=== PATIENT | female | born 1995 | race African-American/Black ===

== ENCOUNTER 2016-12-13 11:26 | Emergency (ER) | payer SELFPAY ==
[~2016-12-13] VITALS: Ht 160 cm; Wt 54.4 kg
[~2016-12-13 11:26] MED LIST: TYLENOL; [UNRECOGNIZED DRUG - REMARK]
[2016-12-13 12:03] VITALS: BP 108/67
--- NOTE | 2016-12-13 13:57 | NUR ---
PT AMBULATED TO BED 3 AT THIS TIME.
--- NOTE | 2016-12-13 14:03 | NUR ---
PATIENT PRESENTS TO ED WITH C/O DYSURIA, PT VERBALIZED BURNING UPON VOIDING X1 WK.NO PAIN NOTED AT THIS TIME. DENIES N/V/D; SKIN IS PINK/WARM/DRY; AAOX4 WITH EVEN AND STEADY GAIT; LUNGS CLEAR BL; HR EVEN AND REGULAR; PT DENIES ANY FEVER, CP, SOB, OR COUGH AT THIS TIME; PATIENT POSITIONED FOR COMFORT; HOB ELEVATED; BEDRAILS UP X2; BED DOWN. ER MD MADE AWARE OF PT STATUS.
--- NOTE | 2016-12-13 14:27 | NUR ---
PT IS AAOX4. NO ACUTE DISTRESS NOTED.NEEDS ATTENDED,SAFETY PRECAUTION INSTITUTED.WILL CONTINUE TO MONITOR PT.
[2016-12-13 14:53] VITALS: BP 121/86
--- NOTE | 2016-12-13 14:53 | NUR ---
Patient discharged with v/s stable. Written and verbal after care instructions given and explained. Patient alert, oriented and verbalized understanding of instructions. Ambulatory with steady gait. All questions addressed prior to discharge. ID band removed. Patient advised to follow up with PMD. Rx of CIPRO, PYRIDIUM,MOTRIN given. Patient educated on indication of medication including possible reaction and side effects. Opportunity to ask questions provided and answered.
== END 2016-12-13 14:53 | disposition home or self-care (01) ==
LOC: MED 11:26
DX: N39.0 Urinary tract infection, site not specified (principal); Z32.02 Encounter for pregnancy test, result negative

== ENCOUNTER 2018-07-23 14:34 | Emergency (ER) | payer MEDICARE ==
[~2018-07-23] VITALS: Ht 162.6 cm; Wt 59.0 kg
[2018-07-23 14:41] VITALS: BP 122/71
--- NOTE | 2018-07-23 14:50 | NUR ---
22YO F W/C/O VAGINAL DC AND PAIN X 2 WK. THIN WHITE DISCHARGE. PRURITUS AND BURNING PAIN, NO OTHER MEDICAL CO AT THIS TIME. ER MD MADE AWARE, WILL CONTINUE TO MONITOR. --[facility] RX FLAGYL X7DAYS COURSE DC AND DISCOMFORT PERSIST HX--DENIES RX---NONE
--- NOTE | 2018-07-23 14:56 | NUR ---
DR COLEMAN AT BEDSIDE FOR PATIENT EVALUATION
[2018-07-23] MEDS ORDERED: AZITHROMYCIN 250 MG TAB PO ONE (15:10)
[2018-07-23] MEDS ORDERED: cefTRIAXone 250 MG in LIDOCAINE MPF 1% - 5 mL VIAL 0.9 ML IM ONE (15:10)
[2018-07-23 15:19] LABS: APPEARANCE,URINE CLEAR (CLEAR); BILIRUBIN,URINE NEGATIVE (NEGATIVE); BLOOD, URINE NEGATIVE (NEGATIVE); COLOR,URINE YELLOW (YELLOW); LEUKOCYTE ESTERASE ,URINE TRACE (NEGATIVE); NITRITE, URINE NEGATIVE (NEGATIVE); PH,URINE 6.5 (5.0-9.0); UGLUCOSE NEGATIVE (NEGATIVE)
--- NOTE | 2018-07-23 15:20 | NUR ---
PT RESTING IN BED IN NO APPEARENT DISTRESS WILL CONTINUE TO MONITOR
[2018-07-23 15:30] LABS: RBC,URINE 0-5 (RARE) /HPF (0-5); WBC,URINE 0-5 (RARE) /HPF (0-5)
[2018-07-23 16:42] VITALS: BP 125/72
--- NOTE | 2018-07-23 16:42 | NUR ---
Patient discharged with v/s stable. Written and verbal after care instructions given and explained. Patient alert, oriented and verbalized understanding of instructions. Ambulatory with steady gait. All questions addressed prior to discharge. ID band removed. Patient advised to follow up with PMD. Rx of DIFLUCAN, CIPRO given. Patient educated on indication of medication including possible reaction and side effects. Opportunity to ask questions provided and answered.
[2018-07-25 06:27] LABS: CHLAMYDIA TRACHOMATIS AMP DNA Negative (Negative)
== END 2018-07-23 16:42 | disposition home or self-care (01) ==
LOC: MED 14:34
DX: N39.0 Urinary tract infection, site not specified (principal)
CPT/HCPCS: 36415; 81001; 81025; 87086; 87491; 96372; 99284; J0696; J2001

== ENCOUNTER 2019-02-11 01:11 | Emergency (ER) | payer BC, MEDICARE, OTHER ==
[~2019-02-11] VITALS: Ht 162.6 cm; Wt 65.8 kg
--- NOTE | 2019-02-11 01:20 | NUR ---
pt ambulated to bed 11
--- NOTE | 2019-02-11 01:20 | NUR ---
Desirae singer in [facility] - 02/11/19 at 0120 by DIOGENES PT TAKEN TO BED 11
[2019-02-11 01:21] VITALS: BP 115/79
--- NOTE | 2019-02-11 01:25 | NUR ---
PT CAME IN TO THE ER WITH C/O RT EAR PAIN. PATIENT STATED THAT SHE HAD A COLD THIS PAST WEEK. ASSESSED THE EAR PT HAD SOME REDNESS, PT ABLE TO HEAR. PAIN 7/10 ACHE, PAIN STARTED 2 DAYS AGO. ER MD AT BEDSIDE.SAFETY PRECAUTIONS IN PLACE.
[2019-02-11] MEDS ORDERED: IBUPROFEN 800 MG TAB PO ONE (01:30)
[2019-02-11] MEDS ORDERED: AMOXICILLIN 500 MG CAP PO ONE (01:30)
[2019-02-11 02:03] VITALS: BP 130/76
--- NOTE | 2019-02-11 02:03 | NUR ---
Patient discharged with v/s stable. Written and verbal after care instructions given and explained. Patient alert, oriented and verbalized understanding of instructions. Ambulatory with steady gait. All questions addressed prior to discharge. ID band removed. Patient advised to follow up with PMD. Rx of Amoxicillin and Motrin given. Patient educated on indication of medication including possible reaction and side effects. Opportunity to ask questions provided and answered.
== END 2019-02-11 02:03 | disposition home or self-care (01) ==
LOC: MED 01:11
DX: H66.93 Otitis media, unspecified, bilateral (principal); Z79.899 Other long term (current) drug therapy
CPT/HCPCS: 99283

== ENCOUNTER 2019-05-14 18:12 | Emergency (ER) | payer BC, OTHER ==
[~2019-05-14] VITALS: Ht 162.6 cm; Wt 75.4 kg
[2019-05-14 18:16] VITALS: BP 132/71
--- NOTE | 2019-05-14 18:21 | NUR ---
PT AMBULATED TO LOBBY AT THIS TIME W/ VSS.
--- NOTE | 2019-05-14 18:30 | NUR ---
PT TO ER BED 6
--- NOTE | 2019-05-14 18:40 | NUR ---
PT BIB SELF TO THE ED WITH THE CHIEF C/O COUGH, THROAT PAIN AND NASAL CONGESTION FOR 3 WEEKS. COUGH WITH PHLEGM AND BLOOD. NAUSEATED AT THIS TIME. DENIES FEVER. REPORTS OF HAVING VOMIT X3 TODAY AFTER COUGH. LUNGS CLEAR. STATES GENERALIZED PAIN 10/10 AT THIS TIME.
[2019-05-14 19:10] VITALS: BP 132/71
--- NOTE | 2019-05-14 19:10 | NUR ---
Patient discharged with v/s stable. Written and verbal after care instructions given and explained. Patient alert, oriented and verbalized understanding of instructions. Ambulatory with steady gait. All questions addressed prior to discharge. ID band removed. Patient advised to follow up with PMD. Rx of tessalon pearls/ azithromycin/claritin given. Patient educated on indication of medication including possible reaction and side effects. Opportunity to ask questions provided and answered.
== END 2019-05-14 19:00 | disposition home or self-care (01) ==
LOC: MED 18:12
DX: R05 Cough (principal); R07.0 Pain in throat; R11.10 Vomiting, unspecified; R07.9 Chest pain, unspecified; M79.10 Myalgia, unspecified site; R51 Headache; Z79.899 Other long term (current) drug therapy
CPT/HCPCS: 99283

== ENCOUNTER 2019-07-07 14:50 | Emergency (ER) | payer BC, OTHER ==
[~2019-07-07] VITALS: Ht 160 cm; Wt 68.0 kg
[2019-07-07 15:00] VITALS: BP 116/74
--- NOTE | 2019-07-07 15:58 | NUR ---
PT AMBULATED TO BED 07.
--- NOTE | 2019-07-07 16:04 | NUR ---
23F PT BIB FRIEND C/O 10/10 THROAT PAIN/DISCOMFORT X 1 WEEK. NON RADIATING 10/10 SHARP PAIN IN THROAT THAT INCREASES W/ SWALLOWING. STATES FEELS LIKE THROAT IS CLOSING UP. AIRWAY PATENT, VOICE CLEAR, NO EXCESS DROOLING, RR EVEN AND NON-LABORED, BREATH SOUNDS CLEAR THROUGHOUT. TONSILS APPEAR SWOLLEN. DENIES FEVER, N/V/D. VSS. ER MD TO SEE PT. HX- NONE RX- CONTROL ALL- NKA
[2019-07-07] MEDS ORDERED: DEXAMETHASONE 10 MG/ML VIAL PO ONE (17:30)
--- NOTE | 2019-07-07 17:43 | NUR ---
STREP THROAT CULTURE COLLECTED AND WALKED TO LAB
[2019-07-07 18:49] VITALS: BP 101/71
--- NOTE | 2019-07-07 18:49 | NUR ---
Patient discharged with v/s stable. Written and verbal after care instructions given and explained. Patient verbalized understanding. Ambulatory with steady gait. All questions addressed prior to discharge. Advised to follow up with PMD.
== END 2019-07-07 18:50 | disposition home or self-care (01) ==
LOC: MED 14:50
DX: J02.8 Acute pharyngitis due to other specified organisms (principal); Z79.1 Long term (current) use of non-steroidal anti-inflammatories (NSAID)
CPT/HCPCS: 87081; 99283; J1100

== ENCOUNTER 2019-07-16 06:51 | Emergency (ER) | payer BC, OTHER ==
[~2019-07-16] VITALS: Ht 162.6 cm; Wt 63.5 kg
[2019-07-16 06:56] VITALS: BP 110/59
[2019-07-16 06:58] VITALS: BP 110/59
== END 2019-07-16 07:46 | disposition home or self-care (01) ==
LOC: MED 06:51
DX: J02.9 Acute pharyngitis, unspecified (principal); F12.90 Cannabis use, unspecified, uncomplicated; Z79.899 Other long term (current) drug therapy
CPT/HCPCS: 99283

== ENCOUNTER 2019-10-10 13:20 | Emergency (ER) | payer OTHER, BC ==
[~2019-10-10] VITALS: Ht 162.6 cm; Wt 82.3 kg
[2019-10-10 13:30] VITALS: BP 129/83
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
--- NOTE | 2019-10-10 14:15 | NUR ---
PA EVALUATING PT AT CHAIRSIDE
[2019-10-10 14:38] VITALS: BP 129/83
== END 2019-10-10 14:38 | disposition home or self-care (01) ==
LOC: MED 13:20
DX: S93.402A Sprain of unspecified ligament of left ankle, initial encounter (principal); S16.1XXA Strain of muscle, fascia and tendon at neck level, initial encounter; Z79.899 Other long term (current) drug therapy; V89.2XXA Person injured in unspecified motor-vehicle accident, traffic, initial encounter; Y93.89 Activity, other specified; Y92.89 Other specified places as the place of occurrence of the external cause; Y99.8 Other external cause status
CPT/HCPCS: 99282

== ENCOUNTER 2020-05-21 09:14 | Emergency (ER) | payer BC, OTHER ==
[~2020-05-21] VITALS: Ht 160 cm; Wt 72.6 kg
[2020-05-21 09:20] VITALS: BP 120/75
--- NOTE | 2020-05-21 09:30 | NUR ---
DR COLEMAN AT BEDSIDE
--- NOTE | 2020-05-21 09:31 | NUR ---
C/O SWOLLEN LEFT UPPER EYE LID SINCE THIS MORNING. EYELID IS VISIBLY SWOLLEN. DENIES ITCHINESS AND MILD PAIN 6/10. STATES MILD BLURRY VISION. NO TRAUMA REPORTED. NO PMH NKA
--- NOTE | 2020-05-21 09:40 | NUR ---
Patient discharged. Written and verbal after care instructions given and explained. Patient alert, oriented and verbalized understanding of instructions. Ambulatory with steady gait. All questions addressed prior to discharge. ID band removed. Patient advised to follow up with PMD. Rx of MOTRIN AND BLEPH OPTHALMIC SOLUTION given. Patient educated on indication of medication including possible reaction and side effects. Opportunity to ask questions provided and answered.
== END 2020-05-21 09:40 | disposition home or self-care (01) ==
LOC: MED 09:14
DX: H00.014 Hordeolum externum left upper eyelid (principal); Z79.899 Other long term (current) drug therapy
CPT/HCPCS: 99283

== ENCOUNTER 2020-09-25 08:15 | Emergency (ER) | payer BC, OTHER ==
[~2020-09-25] VITALS: Ht 165.1 cm; Wt 87.2 kg
[2020-09-25 08:24] VITALS: BP 120/70
--- NOTE | 2020-09-25 08:32 | NUR ---
PT TAKEN TO BED 10.
--- NOTE | 2020-09-25 08:45 | NUR ---
24 Y/O COMES FROM HOME PRESENTS TO ED C/O SORE THROAT X LAST NIGHT. COVID TESTED POSITIVE 5 MONTHS AGO & RE-CHECKED 3 WEEKS LATER : NEGATIVE. PT STES SHE HAS BEEN HAVING INCREASED PAIN WHEN EATING, SWALLOWING AND SPEAKING X1 DAY. RATES PAIN 7/10. PT STATES " IT FEELS LIKE STREP THROAT". BACK OF THROAT IS RED, WITH A SMALL WHITE PATCH ON THE RIGHT TONSILLAR AREA. DENIES TROUBLE SWALLOWING OR BREATHING. PT POSITIONED FOR COMFORT, BED LOCKED AND IN LOWEST POSITION. NO PMH NKDA
[2020-09-25] MEDS ORDERED: ACETAMINOPHEN 325 MG TAB PO ONE (09:35)
[2020-09-25] MEDS ORDERED: LIDOCAINE VISCOUS 2% 20 ML UDC PO ONE (09:35)
--- NOTE | 2020-09-25 09:46 | NUR ---
STEP SWAB COMPLETED AND SENT TO LAB
[2020-09-25 10:32] VITALS: BP 120/70
--- NOTE | 2020-09-25 10:32 | NUR ---
Patient discharged with v/s stable. Written and verbal after care instructions given and explained. Patient alert, oriented and verbalized understanding of instructions. Ambulatory with steady gait. All questions addressed prior to discharge. ID band removed. Patient advised to follow up with PMD. Rx of CHLOROHEXADINE GLUCONATE, CEPACOL given. Patient educated on indication of medication including possible reaction and side effects. Opportunity to ask questions provided and answered.
== END 2020-09-25 10:32 | disposition home or self-care (01) ==
LOC: MED 08:15
DX: J02.9 Acute pharyngitis, unspecified (principal)
CPT/HCPCS: 87081; 99283

== ENCOUNTER 2020-09-29 17:27 | Emergency (ER) | payer OTHER, BC ==
[~2020-09-29] VITALS: Ht 162.6 cm; Wt 86.2 kg
[2020-09-29 17:47] VITALS: BP 135/76
[2020-09-29] MEDS ORDERED: DEXAMETHASONE 10 MG/ML VIAL IM ONE (19:55)
[2020-09-29] MEDS ORDERED: KETOROLAC 30 MG/ML VIAL IM ONE (19:55)
[2020-09-29] MEDS ORDERED: cefTRIAXone 1,000 MG in LIDOCAINE MPF 1% 2.1 ML IM ONE (19:55)
--- NOTE | 2020-09-29 19:57 | NUR ---
PT TAKEN TO CHAIR A.
--- NOTE | 2020-09-29 20:00 | NUR ---
SEE COMPLETE ASSESSMENT
[2020-09-29] MEDS ORDERED: LIDOCAINE MPF 1% 5 ML ONE (20:02)
[2020-09-29] MEDS ORDERED: cefTRIAXone 1,000 MG VIAL ONE (20:02)
--- NOTE | 2020-09-29 20:42 | NUR ---
Patient discharged with v/s stable. Written and verbal after care instructions given and explained. Patient alert, oriented and verbalized understanding of instructions. Ambulatory with steady gait. All questions addressed prior to discharge. ID band removed. Patient advised to follow up with PMD. Rx of NORCO, IBUPROFEN, AND AMOXICILIN given. Patient educated on indication of medication including possible reaction and side effects. Opportunity to ask questions provided and answered.
== END 2020-09-29 20:42 | disposition home or self-care (01) ==
LOC: MED 17:27
DX: J02.9 Acute pharyngitis, unspecified (principal); Z79.899 Other long term (current) drug therapy
CPT/HCPCS: 96372; 99284; J0696; J1100; J1885; J2001

== ENCOUNTER 2021-04-20 16:54 | Emergency (ER) | payer BC, OTHER ==
[~2021-04-20] VITALS: Ht 162.6 cm; Wt 84.8 kg
[2021-04-20 16:56] VITALS: BP 128/73
--- NOTE | 2021-04-20 17:03 | NUR ---
PT AMBULATORY TO BED #5
--- NOTE | 2021-04-20 17:16 | NUR ---
JENELLE SORTO AT BEDSIDE EVALUATING PT
--- NOTE | 2021-04-20 17:20 | NUR ---
Patient transferred to bed 9 for further care. RN reevaluating the patient at bedside.
--- NOTE | 2021-04-20 17:33 | NUR ---
Urine sample collected, walked to lab and handed to CPT. Shereen
[2021-04-20] MEDS ORDERED: NITR100C7 PO (17:34)
--- NOTE | 2021-04-20 17:41 | NUR ---
25 y/o F BIB self from home with c/c UTI symptoms x 1 week. A&Ox4, ambulatory, states throbbing pain after peeing, +dysuria +frequency +dribbling +urgency. Denies N/V/D, fever/chills, back pain, abdominal pain, headache, dizziness. Bed locked in lowest position, side rails x 1, call light in reach. PMH/Sx/Meds: Denies NKA
[2021-04-20 17:50] VITALS: BP 128/73
--- NOTE | 2021-04-20 17:50 | NUR ---
Patient discharged with v/s stable. Written and verbal after care instructions given and explained. Patient alert, oriented and verbalized understanding of instructions. Ambulatory with steady gait. All questions addressed prior to discharge. ID band removed. Patient advised to follow up with PMD. Rx of Nitrofurantoin Monohyd/M-Cryst (Macrobid) given. Patient educated on indication of medication including possible reaction and side effects. Opportunity to ask questions provided and answered.
== END 2021-04-20 17:50 | disposition home or self-care (01) ==
LOC: MED 16:54
DX: N39.0 Urinary tract infection, site not specified (principal)
CPT/HCPCS: 36415; 81002; 81025; 87491; 99283

== ENCOUNTER 2022-03-17 07:47 | Emergency (ER) | payer OTHER, BC ==
[~2022-03-17] VITALS: Ht 162.6 cm; Wt 92.1 kg
[~2022-03-17 07:47] MED LIST changes: +NITR100C7 PO
[2022-03-17 07:56] VITALS: BP 112/60
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
[2022-03-17] MEDS ORDERED: LIDOCAINE 5% 1 EA PATCH TP ONE (08:30)
[2022-03-17] MEDS ORDERED: LID5T TP (08:34)
--- NOTE | 2022-03-17 08:49 | NUR ---
Patient discharged with v/s stable. Written and verbal after care instructions CLAVICULAR PAIN given and explained. Patient alert, oriented and verbalized understanding of instructions. Ambulatory with steady gait. All questions addressed prior to discharge. ID band removed. Patient advised to follow up with PMD. Rx of LIDODERM given. Patient educated on indication of medication including possible reaction and side effects. Opportunity to ask questions provided and answered.
== END 2022-03-17 08:49 | disposition home or self-care (01) ==
LOC: MED 07:47
DX: S16.1XXA Strain of muscle, fascia and tendon at neck level, initial encounter (principal); S40.011A Contusion of right shoulder, initial encounter; Z79.899 Other long term (current) drug therapy; V49.59XA Passenger injured in collision with other motor vehicles in traffic accident, initial encounter; Y93.89 Activity, other specified; Y92.89 Other specified places as the place of occurrence of the external cause; Y99.8 Other external cause status
CPT/HCPCS: 81002; 81025; 99282

== ENCOUNTER 2022-04-13 10:49 | Emergency (ER) | payer BC, OTHER ==
[~2022-04-13] VITALS: Ht 162.6 cm; Wt 92.6 kg
[~2022-04-13 10:49] MED LIST changes: +LID5T TP
[2022-04-13 10:56] VITALS: BP 120/72
--- NOTE | 2022-04-13 11:19 | NUR ---
26YO FEMALE BIB SELF C/O RIGHT HAND 10/10 THROBBING NONRADIATING PAIN AND SWELLING NEAR THUMB AND WRIST AREA FOR 1WK. PT DENIES TRAUMA TO HAND AND THERE IS NO VISIBLE DEFORMITY NOTED AT THIS TIME OTHER THAN SWELLING. LIMITED RANGE OF MOTION ON RIGHT HAND NOTED. PMH PT DENIES ALLEGIES DENIES MEDS: TOPICAL OTC PAIN RELIEF CREAM CHARTED BY: ИРИНА YWMAN
[2022-04-13 12:04] VITALS: BP 120/72
== END 2022-04-13 12:04 | disposition home or self-care (01) ==
LOC: MED 10:49
DX: M65.4 Radial styloid tenosynovitis [de Quervain] (principal); Z79.899 Other long term (current) drug therapy
CPT/HCPCS: 99283

== ENCOUNTER 2022-08-20 14:04 | Emergency (ER) | payer BC, MEDICAID ==
[~2022-08-20] VITALS: Ht 162.6 cm; Wt 98.0 kg
[2022-08-20 14:24] VITALS: BP 118/68
[2022-08-20] MEDS ORDERED: KETOROLAC 30 MG/ML VIAL IM ONE (14:50)
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
[2022-08-20] MEDS ORDERED: IBUPROFEN 600 MG TAB PO ONE (16:00)
[2022-08-20] MEDS ORDERED: NAPR-1704 PO (16:07)
[2022-08-20 16:39] VITALS: BP 110/60
== END 2022-08-20 16:30 | disposition home or self-care (01) ==
LOC: MED 14:04
DX: S40.021A Contusion of right upper arm, initial encounter (principal); X58.XXXA Exposure to other specified factors, initial encounter; Y93.89 Activity, other specified; Y92.89 Other specified places as the place of occurrence of the external cause; Y99.8 Other external cause status
CPT/HCPCS: 93971; 99284; Q0092

== ENCOUNTER 2023-01-20 11:42 | Emergency (ER) | payer BC ==
[~2023-01-20] VITALS: Ht 162.6 cm; Wt 96.6 kg
[~2023-01-20 11:42] MED LIST changes: +NAPR-1704 PO
[2023-01-20 12:04] VITALS: BP 107/67
[2023-01-20] MEDS ORDERED: NACL 0.9% 1,000 ML IV ONE (12:20)
[2023-01-20] MEDS ORDERED: ONDANSETRON 4 MG/2 ML VIAL IVP ONE (12:20)
--- NOTE | 2023-01-20 12:55 | NUR ---
27YO FEMALE PT C/O SHARP ABD PAIN AND N/V/D-blood XTODAY. REPORTS SUDDEN ONSET AND FEELING "HOT". ABD NON TENDER OR DISTENDED. DENIES CHANGE IN APPETITE, CHEST PAIN, FEVER OR CHILLS. PT AAOX4, RESPIRATIONS EVEN AND UNLABORED. WHEELCHAIR ASSISTED TO ROOM. ON SENIOR PRODUCT CONSULTANT. HX:DENIES NKA
[2023-01-20 13:05] LABS: BASOPHILS # (AUTO) 0.1 K/uL (0.00-0.22); BASOPHILS % (AUTO) 0.5 % (0.0-2.0); EOSINOPHILS # (AUTO) 0.1 K/uL (0-0.4); EOSINOPHILS % (AUTO) 0.5 % (0.0-4.0); HEMATOCRIT 38.2 % (36-48); HEMOGLOBIN 12.5 g/dL (12.0-16.0); LYMPHOCYTES # (AUTO) 2.2 K/uL (2.5-16.5); LYMPHOCYTES % (AUTO) 17.2 % (20.5-51.1); MEAN CORPUSCULAR HEMOGLOBIN 29 pg (27-31); MEAN CORPUSCULAR HGB CONC 33 g/dL (33-37); MEAN CORPUSCULAR VOLUME 88.3 fL (80-94); MONOCYTES # (AUTO) 0.5 K/uL (0.8-1.0); MONOCYTES % (AUTO) 3.6 % (1.7-9.3); NEUTROPHILS # (AUTO) 9.9 K/uL (1.8-7.7); NEUTROPHILS % (AUTO) 78.2 % (42.2-75.2); PLATELET COUNT (AUTO) 324 K/uL (140-450); RED BLOOD CELL COUNT(AUTO) 4.32 MIL/uL (4.20-5.40); RED CELL DISTRIBUTION WIDTH 13.5 % (11.6-13.7); WHITE BLOOD COUNT (AUTO) 12.7 K/uL (4.8-10.8)
[2023-01-20 13:46] LABS: ALBUMIN 4.1 g/dL (3.4-5.0); ANION GAP 12.8 (8-16); CARBON DIOXIDE 24.8 mmol/L (21-32); CREATININE 0.8 mg/dL (0.6-1.3); POTASSIUM 3.6 mmol/L (3.5-5.1); TOTAL BILIRUBIN 0.4 mg/dL (0.0-1.0)
[2023-01-20 13:49] VITALS: BP 111/48
[2023-01-20] MEDS ORDERED: DICYCLOMINE HCL LIQUID 20 MG, ALUMINUM HYD/MAG/SIMETHICONE 30 ML, LIDOCAINE VISCOUS 2% ... PO ONE ×3 (14:05)
[2023-01-20] MEDS ORDERED: DICYCLOMINE HCL LIQUID 10 MG/5 ML UDC ONE (14:08)
[2023-01-20] MEDS ORDERED: ALUMINUM HYD/MAG/SIMETHICONE 30 ML UDC ONE (14:08)
[2023-01-20 14:51] LABS: APPEARANCE,URINE CLEAR (CLEAR); BILIRUBIN,URINE NEGATIVE (NEGATIVE); BLOOD, URINE NEGATIVE (NEGATIVE); COLOR,URINE YELLOW (YELLOW); LEUKOCYTE ESTERASE ,URINE NEGATIVE (NEGATIVE); NITRITE, URINE POSITIVE (NEGATIVE); UGLUCOSE NEGATIVE (NEGATIVE)
--- NOTE | 2023-01-20 15:01 | NUR ---
PT TAKEN TO CT VIA WHEELCHAIR
[2023-01-20 15:15] LABS: BARBITURATE, URINE NEGATIVE ng/ml (NEG <=200); BENZODIAZEPINE, URINE NEGATIVE ng/mL (NEG <=200); CANNABINOID, URINE POSITIVE ng/mL (NEG <=50); COCAINE, URINE NEGATIVE ng/mL (NEG <=300); OPIATE, URINE NEGATIVE ng/mL (NEG <=2000); PHENCYCLIDINE SCREEN,URINE NEGATIVE ng/mL (NEG <=25)
[2023-01-20] MEDS ORDERED: ONDA-188 SL (15:44)
[2023-01-20] MEDS ORDERED: ACET-10509 PO (15:44)
[2023-01-20] MEDS ORDERED: LOPE-143 PO (15:44)
--- NOTE | 2023-01-20 15:50 | NUR ---
IV removed, catheter intact and site benign. Applied folded 4x4 gauze and tape to stop bleeding.
--- NOTE | 2023-01-20 15:51 | NUR ---
Patient discharged with v/s stable. Written and verbal after care instructionsFOR N/V given and explained. Patient alert, oriented and verbalized understanding of instructions. Ambulatory with steady gait. All questions addressed prior to discharge. ID band removed. Patient advised to follow up with PMD. Rx of TYLENOL XTRA STRENGTH, IMODIUM AND ZOFRAN given. Opportunity to ask questions provided and answered.
--- NOTE | 2023-01-20 16:19 | NUR ---
PT IN A HURRY TO LEAVE PRIOR TO D/C. PROVIDER OK FOR PT D/C, ACI GIVEN, IV D/EZEQUIEL CATHETER INTACT
--- NOTE | 2023-01-20 16:24 | NUR ---
The patient's care was reviewed and supervised by Hetal Rooney RN.
== END 2023-01-20 15:51 | disposition home or self-care (01) ==
LOC: MED 11:42
DX: R11.2 Nausea with vomiting, unspecified (principal); Z20.822 Contact with and (suspected) exposure to COVID-19; D72.829 Elevated white blood cell count, unspecified; R19.7 Diarrhea, unspecified; R10.84 Generalized abdominal pain; F12.90 Cannabis use, unspecified, uncomplicated; Z79.899 Other long term (current) drug therapy
CPT/HCPCS: 36415; 74176; 80053; 80305; 81003; 81025; 85025; 87426; 96361; 96374; 99285; J2405; J7030